=== PATIENT | female | born 1950 | race Caucasian/White ===

== ENCOUNTER → 2024-01-27 | Outpatient (CLI) | payer MEDICARE, SELFPAY ==
--- NOTE | 2024-01-27 14:45 | CT_ITS ---
CT RIGHT LOWER EXTREMITY WITH 3-D IMAGING CLINICAL INDICATION: PAIN IN RIGHT KNEE TECHNIQUE: Axial CT images of the right lower extremity (right hip, right knee, and right ankle) was performed without IV contrast material. Coronal and sagittal reformats were provided. The protocol utilizes one or more of the following dose reduction techniques: automated exposure control, adjustment of mA and/or kV according to patient size, and/or use of iterative reconstruction technique. RADIATION DOSAGE (If Supplied By Facility): CTDIvol = ( 18.63 ) mGy, DLP = ( 1337.92 ) mGycm COMPARISON: No relevant prior comparison study available. FINDINGS: Bones: There is mild degenerative arthrosis of the right hip joint with tiny marginal osteophyte formation. There is a 9 mm synovial herniation pit along the anterolateral aspect of the right femoral head-neck junction. There is tricompartment degenerative arthrosis of the right knee, most severe in the patellofemoral and medial femorotibial compartments with marginal osteophyte formation, joint space narrowing, and subchondral sclerosis. There are small plantar and posterior calcaneal spurs. 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 Osseous structures are intact without evidence of fracture or dislocation. No lytic or blastic osseous masses. Soft Tissues: There is a small to moderate right knee joint effusion. The deep soft tissue structures are unremarkable. There is mild prepatellar soft tissue swelling. CT/Extremity Lower without Contra IMPRESSION: Tricompartment degenerative arthrosis of the right knee, most severe in the patellofemoral and medial femorotibial compartments. Small to moderate right knee joint effusion. Electronically Signed: Portillo Dallas MD at 12:43 EDT ,
== END | disposition home or self-care (01) ==
PROVIDERS: PCP Internal Medicine; Referring Provider Specialist; Visit Provider Specialist
DX: M25.561 Pain in right knee (principal); M17.11 Unilateral primary osteoarthritis, right knee
CPT/HCPCS: 73700